=== PATIENT | female | born 1965 | race Caucasian/White ===

== ENCOUNTER 2017-11-29 19:01 | Emergency (ER) | payer SELFPAY ==
--- NOTE | 2017-11-29 19:31 | ERNOTE ---
<Charles Esposito - Last Filed: 11/29/17 19:35> Psychological HPI - Date Date of Service: 11/29/17 - General Chief Complaint: Psychiatric Problem Source: Reports: patient Exam Limitations: Reports: other - psychiatric illness - Immun/Allergies/Home Medications Allergies/Adverse Reactions: Allergies No Known Allergies Allergy (Unverified 02/28/16 08:18) Home Medications: HOME MEDICATIONS ALPRAZolam [Xanax] 0.25 mg PO BID PRN 02/28/16 [Last Taken Unknown] Aspirin/Calcium Carbonate/Mag [Aspirin Buffered 325 mg Tab] 325 mg PO DAILY [Last Taken Unknown] Citalopram Hydrobromide [Citalopram HBr] 20 mg PO DAILY 02/28/16 [Last Taken Unknown] - History of Present Illness Narrative: Patient presents to the ED with police. Police were called because family felt she had posted on social media with a gun and made suicidal threat. She denies this but tells me she has 3 guns in the truck. She seems to be manic clinically any smelling or alcohol clinically. She makes some bizarre statements and has pressured speech. Difficult Hx otherwise. She has known psychiatric illness but denies taking medications. Will not answer some questions. Time Seen by Provider: 11/29/17 19:24 Arrived by: Reports: police Onset/duration: Reports: other - unknown Mechanism: Reports: other - denies overdose Situational Problems: Reports: other - will not answer Prior Treament: Denies: recently seen Review of Systems - Narrative Narrative: Psychiatric illness - Patient's Past Medical History Patient History - Medical: Anemia, Anxiety, Depression, Other Patient History - Cardiac/Respiratory: Hypertension Patient History - Cancer: History Unknown Patient History - Surgical Procedures: No surgical history Patient History - Other: None - Family History Father Family History - Medical: , Renal Disease Grandfather-Maternal Family History - Medical: Family History - Cardiac/Respiratory: Coronary Heart Disease, Myocardial Infarction Mother Family History - Medical: Glaucoma Family History - Cardiac/Respiratory: Asthma, Coronary Heart Disease, Hypertension, Other grandmoth Family History - Medical: , Diabetes Type 2 Family History - Cardiac/Respiratory: Coronary Heart Disease, CVA/Stroke son Family History - Medical: , Other - Social History Psych History: Psychiatric Hx - Immunizations Immunizations Up to Date: Yes Hx Pneumococcal Vaccination: More Information Required to Determine History of Influenza Vaccine: More Information Required to Determine Psychological Exam - Exam General Appearance: Present: alert Head Exam: Present: normal inspection Neurological: Present: alert, transportation coordinator II-XII nml as tested, other - seems to smell of alcohol Thoughts/Hallucinations: Present: flight of ideas Behavior/Eye Contact/Speech: Present: increased rate of speech Eye Exam: Normal inspection: bilateral, PERRL: bilateral Ears, Nose, Throat: Present: other - no rhinorrhea Neck: Present: normal inspection Respiratory: Present: no respiratory distress, normal breath sounds, no accessory muscle use Cardiovascular/Chest: Present: normal peripheral pulses, tachycardia Gastrointestinal/Abdominal: Present: normal bowel sounds, nondistended Back Exam: Present: normal range of motion Extremity Exam: Present: normal range of motion Skin Exam: Present: normal color, warm/dry ED Progress - Vital Signs Vital Signs: Vital Signs 11/29/17 19:04 Temperature 36.3 C L Pulse Rate 106 H Respiratory 14 Rate Blood Pressure 120/70 - Progress/Reassessment Chief Complaint: Psychiatric Problem - Transfer of Care Physician Sign Out: Charles Esposito Receiving Physician: Ashu Lopez Pending Results: Labs Expected Disposition: Transfer Time Seen by Provider: 11/29/17 19:24 Departure Clinical Impression: Bipolar disorder, UTI (urinary tract infection) Alcohol intoxication Qualifiers: Complication of substance-induced condition: with unspecified complication Qualified Code(s): F10.129 - Alcohol abuse with intoxication, unspecified - Departure Disposition: Other health care facility Condition: Stable <Ashu Lopez - Last Filed: 11/30/17 05:19> ED Progress - Results and Orders Patient's Lab Results:: I have reviewed the patient's lab results. - Vital Signs Patient's Vital Signs:: I have reviewed the patient's vital signs. Vital Signs: Vital Signs 11/29/17 19:04 Temperature 36.3 C L Pulse Rate 106 H Respiratory 14 Rate Blood Pressure 120/70 - Progress/Reassessment Progress Note-Subjective: 11/29/17 21:50 The patient was signed out at the change of the shift for follow up on the laboratory work and disposition. The patient has been minimally cooperative and has threatened to leave. The patient was informed that if there was an attempt to leave or not cooperate then there was be a court committal.
[2017-11-29 19:46] LABS: Hemoglobin 15.4 gm/dL (12.5-16.0); Mean Cell Volume 103.8 fl (78-100); Mean Corpuscular Hemoglobin 36.3 pg (27-31); Mean Platelet Volume 9.2 fl (6.0-9.5); Neutrophil # 4.3 K/mm3 (1.3-6.0); Neutrophil % 52.7 % (42-75.0); Platelet Count 345 K/mm3 (150-450); Red Blood Count 4.24 M/mm3 (4.2-5.4); Red Cell Distribution Width 13.2 % (11.5-14.0); White Blood Count 8.2 K/mm3 (4.0-10.5)
[2017-11-29 19:58] LABS: Urine Bilirubin Negative (NEGATIVE); Urine Blood 25 /ul (NEGATIVE); Urine Ketone 50 mg/dL (NEGATIVE); Urine Nitrite Negative (NEGATIVE); Urine Protein Negative (NEGATIVE); Urine Urobilinogen Normal (NORMAL)
[2017-11-29 20:11] LABS: ALT 133 U/L (19-67); AST 120 U/L (0-48); Albumin * 4.3 gm/dl (3.4-5.0); Alkaline Phosphatase * 100 U/L (50-170); Anion Gap 18.6 mmol/L (6.8-13.8); BUN/Creatinine Ratio 16.7 (9.0-21.6); Bilirubin, Total 0.8 mg/dL (0.0-1.1); Blood Urea Nitrogen 11 mg/dL (3-23); Ca. Corrected For Albumin 8.4 mg/dL (8.4-10.2); Chloride 99 mmol/L (97-106); Glucose * 73 mg/dL (70-110); Potassium 3.6 mmol/L (3.4-4.6); Sodium 140 mmol/L (132-142); TSH * 3.491 uIU/mL (0.358-3.74); Total Protein 8.6 gm/dL (6.2-8.2)
[2017-11-29 20:11] LABS: Cocaine Ur Negative (NEGATIVE); Urine Barbiturate Negative (NEGATIVE); Urine Benzodiazepines Negative (NEGATIVE); Urine Opiates Negative (NEGATIVE); Urine PCP Negative (NEGATIVE); Urine THC Negative (NEGATIVE)
[2017-11-29 20:19] LABS: Urine Appearance Cloudy; Urine Bacteria 2+; Urine Color Yellow; Urine RBC 0-5 /hpf (0-5)
[2017-11-30] MEDS ORDERED: CEPHALEXIN MONOHYDRATE 250 MG CAPSULE PO ONE (01:57)
[2017-11-30] MEDS ORDERED: CEPHALEXIN MONOHYDRATE 250 MG CAPSULE ONE (02:05)
[2017-11-30 21:08] VITALS: BP 117/78
--- NOTE | 2017-11-30 21:18 | PN ---
Progess Note - Interim Narrative: 11/30/17 21:10 Patient came for ETOH intoxication and suicidal threats She is sober now, denies any suicidal ideation now, has been evaluated by [facility], recommendation is to send her home as well Patient alert and oriented no acute distress lungs CTA heart RRR Patient calm and cooperative discussed UA findings since there are epithelial cells discussed treating with antibiotics vs waiting for culture results, patient denies any urinary symptoms and would like to wait for cultures patient does not want any follow up, denies depression
== END 2017-11-30 21:22 | disposition home or self-care (01) ==
LOC: ER 19:01
DX: F31.9 Bipolar disorder, unspecified (principal); N39.0 Urinary tract infection, site not specified; F10.129 Alcohol abuse with intoxication, unspecified
CPT/HCPCS: 36415; 80053; 80307; 81001; 84443; 84702; 85025; 87086; 99283; G0480; G0481